=== PATIENT | female | born 1995 | race Caucasian/White ===

== ENCOUNTER 2016-08-12 14:06 | Emergency (ER) | payer OTHER ==
[~2016-08-12] VITALS: Ht 165.1 cm; Wt 69.1 kg
[2016-08-12 14:14] VITALS: Ht 165.1 cm; Wt 69.1 kg
[2016-08-12 15:43] VITALS: O2SAT 98
[2016-08-12] MEDS ORDERED: KETOROLAC TROMETHAMINE 30 MG/ML VIAL IV STA (15:47)
[2016-08-12] MEDS ORDERED: ONDANSETRON INJ 2 MG/ML 2 ML VIAL IV STA (15:47)
[2016-08-12] MEDS ORDERED: SODIUM CHLORIDE 0.9% 1000ML 2,000 ML IV STA (15:47)
[2016-08-12] MEDS ORDERED: CITA10TA4 PO (16:13)
[2016-08-12] MEDS ORDERED: FOLI1TAB7 PO (16:14)
[2016-08-12] MEDS ORDERED: LORA-741 PO (16:15)
[2016-08-12] MEDS ORDERED: METH2.5T PO (16:16)
[2016-08-12 16:17] LABS: HEMATOCRIT 38.6 % (37-47); MEAN CELL VOLUME 84.5 fL (80-100); MEAN CORPUSCULAR HEMOGLOBIN 29.1 pg (25-34); MEAN CORPUSCULAR HGB CONC 34.5 g/dl (32-36); MEAN PLATELET VOLUME 10.3 fL (7.4-10.4); PLATELET COUNT 209 K/uL (130-400); RED BLOOD COUNT 4.57 M/uL (4.2-5.4); WHITE BLOOD COUNT 7.57 K/uL (4.8-10.8)
--- NOTE | 2016-08-12 16:22 | DIAGNOSTIC IMAGING REPORT ---
CHEST ONE VIEW PORTABLE CLINICAL HISTORY: cough dyspnea COMPARISON STUDY: No previous studies for comparison. FINDINGS: Parenchymal infiltrate left infrahilar region. Lungs otherwise appear clear. Diaphragms smooth. IMPRESSION: Focal parenchymal infiltrate left infrahilar region Electronically signed by: Ethan Keys M.D. 08/12/2016 4:21 PM Dictated Date/Time: 08/12/2016 4:20 PM
[2016-08-12] MEDS ORDERED: HYDROCODONE/HOMATROPINE SYRUP 5MG/1.5MG 5ML UDP PO STA (16:23)
[2016-08-12] MEDS ORDERED: ACETAMINOPHEN 325 MG TAB PO STA (16:34)
[2016-08-12 16:36] LABS: BASO % 0.3 %; BASO ABS # 0.02 K/uL (0-0.2); BUN/CREATININE RATIO 16.4 (10-20); COMPLETE YES; CREATININE 0.87 mg/dl (0.60-1.20); EOS % 0.3 %; IG% 0.1 %; LYMPH % 11.9 %; MONO % 11.1 %; NEUT % 76.3 %; POTASSIUM 3.9 mmol/L (3.5-5.1)
[2016-08-12] MEDS ORDERED: LEVAQUIN 750MG / 150ML D5W IV ONE (17:00)
[2016-08-12 17:14] VITALS: TEMP 37.5
[2016-08-12 17:50] LABS: URINE APPEARANCE CLOUDY (CLEAR); URINE BILIRUBIN NEG (NEG); URINE COLOR YELLOW; URINE NITRITE NEG (NEG); URINE SPECIFIC GRAVITY 1.024 (1.000-1.030); UROBILINOGEN NEG (NEG)
[2016-08-12 17:56] LABS: MANUAL MICROSCOPIC REQUIRED? NO; REVIEW REQ? NO
[2016-08-12] MEDS ORDERED: BENZ100C18 PO (18:54)
[2016-08-12] MEDS ORDERED: LEVO1TAB35 PO (18:54)
[2016-08-12 19:13] VITALS: BP 112/53; PULSE 80; O2SAT 95
--- NOTE | 2016-08-12 23:14 | EMERGENCY ROOM VISIT NOTE ---
History Report prepared by Gilberto: Jese Barnes Under the Supervision of: Anny BernalO. First contact with patient: 15:33 Chief Complaint: VOMITING Stated Complaint: V, LIGHTHEADED, COUGH, CHILLS Nursing Triage Summary: Since last night n/v/d but states she normally has diarrhea. Passing out since Friday morning. At [employer] this past weekend. History of Present Illness The patient is a 21 year old female who presents to the Emergency Room with complaints of a severe and persistent cough starting about 2 weeks ago and worsening about a week ago. She has been vomiting after coughing spells since yesterday morning. She denies any nausea. She reports a loss of appetite but has a normal fluid intake. She also started having lightheadedness this morning but denies loss of consciousness. She reports a headache, runny nose, and a sore throat. The patient has a history of frequent sinus infections. 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 She is unsure about any fevers. Pt denies change in vision, chest pain, shortness of breath, abdominal pain, diarrhea, pain or burning with urination, melena, abnormal vaginal discharge, and lower extremity swelling. She is currently on her menstrual period. She denies any control medications. She does not have a family history of heart disease or of sudden deaths. She denies a personal history of blood clots. She returned from [facility] on July 08. The patient's immunizations are up -to-date. Source of History: patient Onset: about 2 weeks ago Position: other (global) Symptom Intensity: severe Quality: other (cough) Timing: other (persistent) Associated Symptoms: + headache, + sorethroat, + vomiting, No SOB, No abdominal pain, No chest pain, No diarrhea, No nausea Review of Systems See HPI for pertinent positives & negatives. A total of 10 systems reviewed and were otherwise negative. Past Medical & Surgical Medical Problems: (1) No Known Active Medical Problems (2) Sinus infection Family History No pertinent family history Social History Smoking Status: Never Smoker Alcohol Use: occasionally Marital Status: single Housing Status: lives with roommate Occupation Status: [employer] student Current/Historical Medications Scheduled Benzonatate (Tessalon Perles), 100 MG PO TID Citalopram Hydrobromide (Citalopram Hydrobromide), 10 MG PO DAILY Folic Acid (Folvite), 1 MG PO DAILY Levofloxacin (Levaquin), 750 MG PO QD@08 Methotrexate (Methotrexate), 2.5 MG PO UD Scheduled PRN Lorazepam (Ativan), 0.5 MG PO TID PRN for Anxiety Allergies Coded Allergies: Amoxicillin (Verified Allergy, Mild, RASH, 10/13/15) Physical Exam Vital Signs Date Time Temp Pulse Resp B/P Pulse Ox O2 Delivery O2 Flow Rate FiO2 08/12/16 19:13 80 20 112/53 95 08/12/16 17:14 37.5 94 16 116/64 97 Room Air 08/12/16 16:23 113 08/12/16 15:43 98 Room Air 08/12/16 15:41 38.2 121 24 147/82 98 Room Air 08/12/16 14:14 37.3 75 17 126/76 98 Room Air Physical Exam GENERAL: Sitting up in bed, disheveled, in no acute distress. EYE EXAM: normal conjunctiva, PERRL and EOM's intact OROPHARYNX: no exudate, no erythema, lips, buccal mucosa, and tongue normal and mucous membranes are moist NECK: supple, no nuchal rigidity, no adenopathy, non-tender LUNGS: Clear to auscultation. Normal chest wall mechanics HEART: Tachycardic rate. no murmurs, S1 normal and S2 normal ABDOMEN: abdomen soft, non-tender, normo-active bowel sounds, no masses, no rebound or guarding. BACK: Back is symmetrical on inspection and there is no deformity, no midline tenderness, no CVA tenderness. SKIN: no rashes and no bruising UPPER EXTREMITIES: upper extremities are grossly normal. LOWER EXTREMITIES: No pitting edema. Calves are equal bilaterally. NEURO EXAM: Normal sensorium, cranial nerves II-XII grossly intact, normal speech, no gross weakness of arms, no gross weakness of legs. Medical Decision & Procedures ER Provider Diagnostic Interpretation: Xray results per the radiologist and my interpretation. CHEST ONE VIEW PORTABLE CLINICAL HISTORY: cough dyspnea COMPARISON STUDY: No previous studies for comparison. FINDINGS: Parenchymal infiltrate left infrahilar region. Lungs otherwise appear clear. Diaphragms smooth. IMPRESSION: Focal parenchymal infiltrate left infrahilar region Electronically signed by: Ethan Keys M.D. 08/12/2016 4:21 PM Dictated Date/Time: 08/12/2016 4:20 PM Laboratory Results 08/12/16 15:55 Red Blood Count 4.57, Mean Corpuscular Volume 84.5, Mean Corpuscular Hemoglobin 29.1, Mean Corpuscular Hemoglobin Concent 34.5, Mean Platelet Volume 10.3, Neutrophils (%) (Auto) 76.3, Lymphocytes (%) (Auto) 11.9, Monocytes (%) (Auto) 11.1, Eosinophils (%) (Auto) 0.3, Basophils (%) (Auto) 0.3, Neutrophils # (Auto ) 5.78, Lymphocytes # (Auto) 0.90, Monocytes # (Auto) 0.84, Eosinophils # (Auto ) 0.02, Basophils # (Auto) 0.02 08/12/16 15:55 Test 08/12/16 15:55 08/12/16 16:15 08/12/16 17:30 White Blood Count 7.57 K/uL (4.8-10.8) Red Blood Count 4.57 M/uL (4.2-5.4) Hemoglobin 13.3 g/dL (12.0-16.0) Hematocrit 38.6 % (37-47) Mean Corpuscular Volume 84.5 fL (80-100) Mean Corpuscular Hemoglobin 29.1 pg (25-34) Mean Corpuscular Hemoglobin Concent 34.5 g/dl (32-36) Platelet Count 209 K/uL (130-400) Mean Platelet Volume 10.3 fL (7.4-10.4) Neutrophils (%) (Auto) 76.3 % Lymphocytes (%) (Auto) 11.9 % Monocytes (%) (Auto) 11.1 % Eosinophils (%) (Auto) 0.3 % Basophils (%) (Auto) 0.3 % Neutrophils # (Auto) 5.78 K/uL (1.4-6.5) Lymphocytes # (Auto) 0.90 K/uL (1.2-3.4) Monocytes # (Auto) 0.84 K/uL (0.11-0.59) Eosinophils # (Auto) 0.02 K/uL (0-0.5) Basophils # (Auto) 0.02 K/uL (0-0.2) RDW Standard Deviation 44.7 fL (36.4-46.3) RDW Coefficient of Variation 14.6 % (11.5-14.5) Immature Granulocyte % (Auto) 0.1 % Immature Granulocyte # (Auto) 0.01 K/uL (0.00-0.02) Anion Gap 14.0 mmol/L (3-11) Est Creatinine Clear Calc Drug Dose 100.7 ml/min Estimated GFR () 111.1 Estimated GFR (Non- 95.9 BUN/Creatinine Ratio 16.4 (10-20) Calcium Level 9.0 mg/dl (8.5-10.1) Total Bilirubin 0.9 mg/dl (0.2-1) Direct Bilirubin 0.2 mg/dl (0-0.2) Aspartate Amino Transf (AST/SGOT) 33 U/L (15-37) Alanine Aminotransferase (ALT/SGPT) 32 U/L (12-78) Alkaline Phosphatase 62 U/L (45-117) Total Protein 7.5 gm/dl (6.4-8.2) Albumin 3.9 gm/dl (3.4-5.0) Lipase 74 U/L (73-393) Influenza Type A Antigen Neg for Influ A (NEG) Influenza Type B Antigen Neg for Influ B (NEG) Urine Color YELLOW Urine Appearance CLOUDY (CLEAR) Urine pH 5.0 (4.5-7.5) Urine Specific [place] 1.024 (1.000-1.030) Urine Protein 1+ (NEG) Urine Glucose (UA) NEG (NEG) Urine Ketones 4+ (NEG) Urine Occult Blood 3+ (NEG) Urine Nitrite NEG (NEG) Urine Bilirubin NEG (NEG) Urine Urobilinogen NEG (NEG) Urine Leukocyte Esterase TRACE (NEG) Urine WBC (Auto) 1-5 /hpf (0-5) Urine RBC (Auto) 5-10 /hpf (0-4) Urine Hyaline Casts (Auto) 1-5 /lpf (0-5) Urine Epithelial Cells (Auto) 10-20 /lpf (0-5) Urine Bacteria (Auto) NEG (NEG) Urine Test NEG (NEG) Laboratory results per my review. Medications Administered Medications (Trade) Dose Ordered Sig/Holley Route Start Time Stop Time Status Last Admin Dose Admin Sodium Chloride (Nss 1000ml) 2,000 ml @ 999 mls/hr Q2H1M STAT IV 08/12/16 15:47 08/12/16 17:47 DC 08/12/16 15:58 999 MLS/HR Ondansetron HCl (Zofran Inj) 4 mg NOW STAT IV 08/12/16 15:47 08/12/16 15:49 DC 08/12/16 16:13 4 MG Ketorolac Tromethamine (Toradol Inj) 30 mg NOW STAT IV 08/12/16 15:47 08/12/16 15:49 DC 08/12/16 16:13 30 MG Hydrocodone Bit/ Homatropine Methylb (Hycodan Syrup) 5 ml NOW STAT PO 08/12/16 16:23 08/12/16 16:24 DC 08/12/16 16:28 5 ML Acetaminophen (Tylenol Tab) 650 mg NOW STAT PO 08/12/16 16:34 08/12/16 16:35 DC 08/12/16 16:56 650 MG Levofloxacin (Levaquin / D5W) 750 mg NOW ONCE IV 08/12/16 17:00 08/12/16 17:01 DC 08/12/16 17:13 750 MG ECG Indication: other (Cough) Rate (beats per minute): 103 Rhythm: sinus tachycardia Findings: no ectopy, other (normal axis) ED Course ED COURSE: Vital signs were reviewed and showed febrile and tachycardic. The patients medical record was reviewed The above diagnostic studies were performed and reviewed. ED treatments and interventions as stated above. 1533: The patient was evaluated in room C10. A complete history and physical examination was performed. 1547: Toradol Inj 30 mg IV, Zofran Inj 4 mg IV, Sodium Chloride 2000 ml @ 999 mls/hr IV 1623: Hycodan Syrup 5 ml PO 1634: Tylenol Tab 650 mg PO 1700: Levofloxacin 750 mg IV 1722: I reevaluated the patient who is resting comfortably. 1852: I spoke with the patient's father. He is an Emergency Room physician and would like for the patient to stick with Levaquin at this time. 1904: Upon reevaluation, the patient is doing well. I discussed my findings with the patient and she understands and agrees with the treatment plan. Based on the patients age, coexisting illnesses, exam and lab findings the decision to treat as an outpatient was made. The patient remained stable while under my care. The patient appeared well at the time of discharge. Medical Decision Differential diagnoses includes but is not limited to pneumonia, bronchitis, COPD/Asthma exacerbation, pneumothorax, pulmonary embolism, congestive heart failure, acute coronary syndrome Patient is a 21-year-old female who presents the ER for fever associated with diffuse myalgias, and a posttussive emesis which has been present since earlier today. Labs show fever and tachycardia. Labs show no significant leukocytosis or anemia. BMP was unremarkable along with LFTs, bilirubin and lipase. She is completely benign abdominal exam and consequently I did not perform any additional imaging. UA shows no signs of infection. Urine was negative. She received 2 L normal saline along with Levaquin, Zofran and Hycodan. Her coughing improved significant. EKG was unremarkable. Chest x- ray shows left-sided pneumonia. Her father is an ER physician and discussed case with him. He is in agreement with the current treatment plan. Discussed the choice of antibiotics with him and he preferred to stick with Levaquin at this time. Patient was discharged with Levaquin and Tessalon Perles to follow- up with S. Discussed with Pt concerning signs and symptoms to watch out for. Pt was instructed to follow up with their PCP and discussed with the patient their option to return to the ED at anytime for persistent or worsening symptoms. The appropriate anticipatory guidance and out-patient management, including indications for return to the emergency department, were explained at length to the patient and understood. Impression Primary Impression: Pneumonia Additional Impression: Sepsis Scribe Attestation The scribe's documentation has been prepared under my direction and personally reviewed by me in its entirety. I confirm that the note above accurately reflects all work, treatment, procedures, and medical decision making performed by me. Departure Information Dispostion Home / Self-Care Prescriptions Benzonatate (TESSALON PERLES) 100 Mg Cap 100 MG PO TID, #30 CAP Prov: August White, DO 08/12/16 Levofloxacin (Levaquin) 750 Mg Tab 750 MG PO QD@08, #9 TAB Prov: August White, DO 08/12/16 Referrals Lorena Moreira MD (PCP) Forms HOME CARE DOCUMENTATION FORM, IMPORTANT VISIT INFORMATION Patient Instructions My [facility], Pneumonia (Bacterial) - [facility] Additional Instructions Please follow up with your primary care doctor or if you are a student [facility] services with in the next 24 hours. Any worsening of your symptoms, please return to the ED immediately. This includes fevers greater than 100.4, unable to eat or drink, passing out, or any other concerning signs or symptoms from your standpoint. Please take antibiotics as prescribed. Please use Tessalon Perles as needed for coughing. Problem Qualifiers Primary Impression: Pneumonia Pneumonia type: due to unspecified organism Laterality: left Lung location : unspecified part of lung Qualified Codes: J18.9 - Pneumonia, unspecified organism Additional Impression: Sepsis Sepsis type: sepsis due to unspecified organism Qualified Codes: A41.9 - Sepsis, unspecified organism
== END 2016-08-12 19:13 | disposition home or self-care (01) ==
LOC: C.EDB 14:09 → C.EDC 19:13
DX: J18.9 Pneumonia, unspecified organism (principal); A41.9 Sepsis, unspecified organism

== ENCOUNTER 2016-08-14 00:08 | Inpatient (IN) | payer OTHER ==
[~2016-08-14] VITALS: Ht 165.1 cm; Wt 69.6 kg
[2016-08-14] VITALS (15 sets, daily range): BP systolic 101–116; BP diastolic 53–75; PULSE 63–107; TEMP 36.8–37.4; O2SAT 95–100; Ht 165.1 cm; Wt 69.6 kg
[~2016-08-14 00:08] MED LIST: BENZ100C18 PO; CITA10TA4 PO; FOLI1TAB7 PO; LEVO1TAB35 PO; LORA-741 PO; METH2.5T PO
[2016-08-14] MEDS ORDERED: HYDROCODONE/HOMATROPINE SYRUP 5MG/1.5MG 5ML UDP PO STA ×2 (00:21→02:00)
[2016-08-14] MEDS ORDERED: SODIUM CHLORIDE 0.9% 1000ML 1,000 ML IV STA ×2 (00:21→01:50)
[2016-08-14] MEDS ORDERED: ACETAMINOPHEN 500 MG TAB PO STA (00:21)
--- NOTE | 2016-08-14 00:23 | EMERGENCY ROOM VISIT NOTE ---
History Report prepared by Gilberto: Uday Koch Under the Supervision of: Dr. Jose Martin Colon M.D. First contact with patient: 00:16 Chief Complaint: COUGH Stated Complaint: COUGH Nursing Triage Summary: Patient arrived to ED via BLS for cough. Patient reports that she was seen and evaluated in the ED yesterday and dx with pneumonia. Patient was given IV levaquin, NSS, toradol yesterday in the ED. Patient was given rx for levaquin. Came back to the ED today because she isn't feeling any better. Patient presents with non-productive cough. History of Present Illness The patient is a 21 year old female who presents to the Emergency Room with complaints of persistent cough for the past few days. The patient complains of rib pain, sore throat, and decreased appetite. The patient presented to the ED yesterday and was started on Levaquin; however, her symptoms have gotten worse since then. She also complains of vomiting and an episode of syncope. The patient is also on Methotrexate for psoriasis. She denies back pain or urinary symptoms. She has a history of sinus infection. Source of History: patient Onset: past few days Position: other (global) Timing: worsening, other (persistent) Associated Symptoms: + LOC (episode of syncope), + sorethroat, + vomiting, No back pain, No urinary symptoms Note: Other associated symptoms: rib pain and decreased appetite Review of Systems See HPI for pertinent positives & negatives. A total of 10 systems reviewed and were otherwise negative. Past Medical & Surgical Medical Problems: (1) No Known Active Medical Problems (2) Sinus infection Family History No pertinent family history Social History Smoking Status: Current Every Day Smoker Alcohol Use: occasionally Marital Status: single Housing Status: lives with roommate Occupation Status: [employer] student Current/Historical Medications Scheduled Benzonatate (Tessalon Perles), 100 MG PO TID Citalopram Hydrobromide (Citalopram Hydrobromide), 10 MG PO DAILY Folic Acid (Folvite), 1 MG PO DAILY Levofloxacin (Levaquin), 750 MG PO QD@08 Methotrexate (Methotrexate), 2.5 MG PO UD Scheduled PRN Lorazepam (Ativan), 0.5 MG PO TID PRN for Anxiety Allergies Coded Allergies: Amoxicillin (Verified Allergy, Mild, RASH, 2/22/17) Physical Exam Vital Signs Date Time Temp Pulse Resp B/P Pulse Ox O2 Delivery O2 Flow Rate FiO2 08/14/16 01:31 103 20 123/65 97 Room Air 08/14/16 00:12 96 Room Air 08/14/16 00:12 36.8 98 20 128/83 96 Room Air Physical Exam GENERAL: Patient is moderately ill appearing and in moderate distress. HEENT: No acute trauma, normocephalic atraumatic, mucous membranes dry, posterior pharyngeal erythema, NECK: No stridor, no adenopathy, no meningismus, trachea is midline. LUNGS: No dyspnea. Persistent cough, crackles bilaterally. HEART: Tachycardia. No murmurs, rubs, gallops appreciated. ABDOMEN: Soft, nontender, bowel sounds positive, no masses appreciated, no peritonitis. BACK: No midline tenderness, no CVA tenderness EXTREMITIES: Normal motion all extremities, no cyanosis, no edema. NEUROLOGIC: Alert and oriented, no acute motor or sensory deficits, no focal weakness, cranial nerves grossly intact. SKIN: No rash, no jaundice, no diaphoresis. Findings of psoriasis. Medical Decision & Procedures ER Provider Diagnostic Interpretation: X ray results are stated below per my interpretation: Chest One View: Left perihilar infiltrate mildly increased from yesterday exam. No effusion, no pneumothorax, normal cardiac border. Laboratory Results 08/14/16 00:30 Red Blood Count 4.58, Mean Corpuscular Volume 85.8, Mean Corpuscular Hemoglobin 29.5, Mean Corpuscular Hemoglobin Concent 34.4, Mean Platelet Volume 10.9, Neutrophils (%) (Auto) 64.7, Lymphocytes (%) (Auto) 19.3, Monocytes (%) (Auto) 14.6, Eosinophils (%) (Auto) 0.8, Basophils (%) (Auto) 0.3, Neutrophils # (Auto ) 3.84, Lymphocytes # (Auto) 1.15, Monocytes # (Auto) 0.87, Eosinophils # (Auto ) 0.05, Basophils # (Auto) 0.02 08/14/16 00:30 Test 08/14/16 00:25 08/14/16 00:30 08/14/16 00:36 White Blood Count 5.95 K/uL (4.8-10.8) Red Blood Count 4.58 M/uL (4.2-5.4) Hemoglobin 13.5 g/dL (12.0-16.0) Hematocrit 39.3 % (37-47) Mean Corpuscular Volume 85.8 fL (80-100) Mean Corpuscular Hemoglobin 29.5 pg (25-34) Mean Corpuscular Hemoglobin Concent 34.4 g/dl (32-36) Platelet Count 188 K/uL (130-400) Mean Platelet Volume 10.9 fL (7.4-10.4) Neutrophils (%) (Auto) 64.7 % Lymphocytes (%) (Auto) 19.3 % Monocytes (%) (Auto) 14.6 % Eosinophils (%) (Auto) 0.8 % Basophils (%) (Auto) 0.3 % Neutrophils # (Auto) 3.84 K/uL (1.4-6.5) Lymphocytes # (Auto) 1.15 K/uL (1.2-3.4) Monocytes # (Auto) 0.87 K/uL (0.11-0.59) Eosinophils # (Auto) 0.05 K/uL (0-0.5) Basophils # (Auto) 0.02 K/uL (0-0.2) RDW Standard Deviation 45.0 fL (36.4-46.3) RDW Coefficient of Variation 14.5 % (11.5-14.5) Immature Granulocyte % (Auto) 0.3 % Immature Granulocyte # (Auto) 0.02 K/uL (0.00-0.02) Anion Gap 11.0 mmol/L (3-11) Est Creatinine Clear Calc Drug Dose 102.2 ml/min Estimated GFR () 112.7 Estimated GFR (Non- 97.3 BUN/Creatinine Ratio 7.6 (10-20) Calcium Level 8.6 mg/dl (8.5-10.1) Total Creatine Kinase 156 U/L (26-192) Troponin I < 0.015 ng/ml (0-0.045) Bedside Lactic Acid Venous 1.07 mmol/L (0.90-1.70) Laboratory results as reviewed by me. Medications Administered Medications (Trade) Dose Ordered Sig/Holley Route Start Time Stop Time Status Last Admin Dose Admin Hydrocodone Bit/ Homatropine Methylb 5 ml 5 ml NOW STAT PO 08/14/16 00:21 08/14/16 00:23 DC 08/14/16 00:34 5 ML Sodium Chloride (Nss 1000ml) 1,000 ml @ 999 mls/hr Q1H1M STAT IV 08/14/16 00:21 08/14/16 01:21 DC 08/14/16 00:21 999 MLS/HR Acetaminophen (Tylenol Tab) 1,000 mg NOW STAT PO 08/14/16 00:21 08/14/16 00:23 DC 08/14/16 00:34 1,000 MG Levofloxacin 750 mg 750 mg NOW STAT IV 08/14/16 00:44 08/14/16 00:50 DC 08/14/16 01:03 750 MG Vancomycin HCl 1750 mg/Sodium Chloride 535 ml @ 200 mls/hr NOW STAT IV 08/14/16 00:54 08/14/16 03:34 08/14/16 01:26 200 MLS/HR Sodium Chloride (Nss 1000ml) 1,000 ml @ 999 mls/hr Q1H1M STAT IV 08/14/16 01:50 08/14/16 02:50 08/14/16 02:04 999 MLS/HR Hydrocodone Bit/ Homatropine Methylb (Hycodan Syrup) 5 ml NOW STAT PO 08/14/16 02:00 08/14/16 02:01 DC 08/14/16 02:07 5 ML ED Course 0019: The patient was evaluated in room B6. A complete history and physical exam was performed. 0021: Ordered Tylenol Tab 1000 mg PO, NSS 1000 ml @ 999 mls/hr IV, Hycodan Syrup 5 ml PO. 0044: Ordered Levofloxacin 750 mg IV. 0054: Ordered Vancomycin HCl 1750 mg/ NSS 535 ml @ 200 mls/hr IV. 0215: At this time, I discussed the patient's case with Dr. Soler - Hospitalist [facility] and he agreed to accept the patient for further evaluation. Medical Decision Differential: Viral, Pharyngitis, Cellulitis, Pneumonia, Influenza, Meningitis, Sepsis, Bacteremia, amongst other pathologies entertained. 21 yr old female with left perihilar infiltrate on CXR yesterday and started on Levaquin with planned outpatient treatment. Worsening cough, fevers, fatigue and vomiting as outpatient. Unable to keep down levaquin at home. Did have syncope/near-syncopal event at home though currently without neuro deficits nor evidence of meningitis, ICH, etc. Suspect syncope secondary to dehydration and inability to keep down fluids. Hoarse voice consistent with persistent cough. Infiltrate mildly increased from yesterday though minimal so. WBC looks good and BUN improved from yesterday after fluids. She is not overtly septic by labs but with her Methotrexate use (psoriasis tx) and inability to keep down PO she is not candidate for attempt at further outpatient treatment. Given fluids , empiric Levaquin plus Vanco as high risk, and cough meds. Discussed with Father (Luis Laboy [phone]) who is an ED Physician in [place], [place] and he agrees with work-up/treatment and disposition. Patient stable and feeling better through ED stay. Throat is erythematous though no evidence of retropharyngeal abscess, epiglottitis, etc. She does not have meningitis by examination. Flu yesterday clear, though will send PCR for more definitive. With pneumonia on CXR and already getting abx no clear indication for strep testing. Consults Time Called: [phone] Consulting Physician: Dr. Soler - Hospitalist [facility] Returned Call: [phone] At this time, I discussed the patient's case with Dr. Soler and he agreed to accept the patient for further evaluation. Impression Primary Impression: Pneumonia Additional Impressions: Immunocompromised state Failure of outpatient treatment Dehydration Vomiting Scribe Attestation The scribe's documentation has been prepared under my direction and personally reviewed by me in its entirety. I confirm that the note above accurately reflects all work, treatment, procedures, and medical decision making performed by me. Departure Information Dispostion Being Evaluated By Hospitalist Referrals Lorena Moreira MD (PCP) Problem Qualifiers Primary Impression: Pneumonia Pneumonia type: due to unspecified organism Laterality: left Lung location : upper lobe of lung Qualified Codes: J18.1 - Lobar pneumonia, unspecified organism Additional Impressions: Vomiting Vomiting type: unspecified Vomiting Intractability: non-intractable Nausea presence: with nausea Qualified Codes: R11.2 - Nausea with vomiting, unspecified
[2016-08-14] MEDS ORDERED: LEVAQUIN 750MG / 150ML D5W IV STA (00:44)
[2016-08-14] MEDS ORDERED: VANCOMYCIN INJ 1,750 MG in SODIUM CHLORIDE 0.9% 500ML 500 ML IV STA (00:54)
[2016-08-14 01:00] LABS: BASO % 0.3 %; BASO ABS # 0.02 K/uL (0-0.2); COMPLETE YES; EOS % 0.8 %; HEMATOCRIT 39.3 % (37-47); IG% 0.3 %; LYMPH % 19.3 %; LYMPH ABS # 1.15 K/uL (1.2-3.4); MEAN CELL VOLUME 85.8 fL (80-100); MEAN CORPUSCULAR HEMOGLOBIN 29.5 pg (25-34); MEAN CORPUSCULAR HGB CONC 34.4 g/dl (32-36); MEAN PLATELET VOLUME 10.9 fL (7.4-10.4); MONO % 14.6 %; NEUT % 64.7 %; PLATELET COUNT 188 K/uL (130-400); RED BLOOD COUNT 4.58 M/uL (4.2-5.4); WHITE BLOOD COUNT 5.95 K/uL (4.8-10.8)
[2016-08-14 01:25] LABS: BLOOD UREA NITROGEN 7 mg/dl (7-18); BUN/CREATININE RATIO 7.6 (10-20); CALCIUM 8.6 mg/dl (8.5-10.1); CARBON DIOXIDE 27 mmol/L (21-32); CHLORIDE 105 mmol/L (98-107); CREATININE 0.86 mg/dl (0.60-1.20); GLUCOSE 92 mg/dl (70-99); POTASSIUM 3.6 mmol/L (3.5-5.1); SODIUM 143 mmol/L (136-145)
[2016-08-14] MEDS ORDERED: ONDANSETRON INJ 2 MG/ML 2 ML VIAL IV STA (02:11)
[2016-08-14 02:31] LABS: INFLUENZA A PCR Neg for Influ A (NEG); INFLUENZA B PCR Neg for Influ B (NEG)
[2016-08-14] MEDS ORDERED: ZOLPIDEM TARTRATE 5 MG TAB PO PRN (03:30)
[2016-08-14] MEDS ORDERED: METHYLPREDNISOLONE IV 60 MG in SYRINGE 0 ML IV SCH (03:30)
[2016-08-14] MEDS ORDERED: ONDANSETRON INJ 2 MG/ML 2 ML VIAL IV PRN (03:30)
[2016-08-14] MEDS ORDERED: ACETAMINOPHEN 325 MG TAB PO PRN (03:30)
[2016-08-14] MEDS ORDERED: ALUMINUM/MAGNESIUM/SIMETH (MAALOX MAX) 30 ML UDC PO PRN (03:30)
[2016-08-14] MEDS ORDERED: MAGNESIUM HYDROXIDE SUSP 30 ML UDC PO PRN (03:30)
[2016-08-14] MEDS ORDERED: LORAZEPAM 0.5 MG TAB PO PRN (03:30)
[2016-08-14] MEDS ORDERED: PROMETHAZINE HCL INJ 12.5 MG in SODIUM CHLORIDE 0.9% 50ML 50 ML IV PRN (03:30)
[2016-08-14] MEDS ORDERED: LORAZEPAM 2 MG/ML 1 ML VIAL IV PRN (03:30)
--- NOTE | 2016-08-14 03:39 | History and Physical ---
History & Physical Date & Time of Service: Aug 14, 2016 at 03:28 Chief Complaint: COUGH Primary Care Physician: Lorena Moreira MD History of Present Illness Source: patient The patient is a 21-year-old female who presents emergency department with complaint of persistent cough, hoarseness, sore throat and rib cage pain over the past few days. She's had a history of recurrent sinus infections has been having sinus congestion over the past week. She had been seen in the emergency department yesterday and was started on oral Levaquin, however, she's had worsening symptoms since then and has had nausea and vomiting would not be able to hold any medications down. She reports the vomiting typically occurs if or paroxysmal coughing becomes uncontrollable, but she is unsure of how the episode of syncope occurred. She has been on methotrexate for psoriasis for 1 month. Past Medical/Surgical History Medical Problems: (1) Sinus infection Status: Resolved Family History No pertinent family history Social History Smoking Status: Current Every Day Smoker Smokeless Tobacco Use: No Alcohol Use: socially Drug Use: none Marital Status: single Occupational Status: [employer] student Multi-Drug Resistant Organisms History of MDRO: No Allergies Coded Allergies: Amoxicillin (Verified Allergy, Mild, RASH, 08/14/16) Home Medications Scheduled Benzonatate (Tessalon Perles), 100 MG PO TID Citalopram Hydrobromide (Citalopram Hydrobromide), 10 MG PO DAILY Folic Acid (Folvite), 1 MG PO DAILY Levofloxacin (Levaquin), 750 MG PO QD@08 Methotrexate (Methotrexate), 2.5 MG PO UD Scheduled PRN Lorazepam (Ativan), 0.5 MG PO TID PRN for Anxiety Review of Systems The patient denies lower extremity swelling, vision change, hearing change, sweats, weight change, pelvic pain, blood in urine or stool, dysuria, urinary frequency or urgency, headache, memory loss, rash, abnormal bruising or bleeding, imbalance, focal weakness, numbness or tingling in arms or legs, arthralgias or myalgias, back or neck pain, night sweats. The review of systems is otherwise negative other than for that already noted above, and at least 10 systems have been reviewed. Physical Exam Vital Signs Date Time Temp Pulse Resp B/P Pulse Ox O2 Delivery O2 Flow Rate FiO2 08/14/16 03:18 94 08/14/16 01:31 103 20 123/65 97 Room Air 08/14/16 00:12 96 Room Air 08/14/16 00:12 36.8 98 20 128/83 96 Room Air The patient is awake, well-developed and adequately nourished, alert and oriented 3, normocephalic and atraumatic, lying in bed and in no acute distress. HEENT--PERRL, EOMI, mucous membranes and oropharynx dry. Neck--supple, no JVD or bruits, thyroid normal, trachea midline, no adenopathy. Heart--normal S1 and S2, no extra beats, no murmurs, rubs or gallops. Lungs--bronchitic cough with wheezing, no respiratory distress, no accessory muscle use. Abdomen--normal bowel sounds and soft, nontender and nondistended, no hernias or masses, no organomegaly. Extremities--no cyanosis, clubbing or edema. There are good distal pulses b/l. Dermatologic--normal skin turgor, normal color, warm and dry, no abnormal lymph nodes, no rash. Neurologic--cranial nerves II through XII grossly intact, motor and sensory examination normal. Rheumatologic--normal range of motion, nontender, muscles and joints. Psychiatric--normal affect. Diagnostics Laboratory Results Results Past 24 Hours Test 08/14/16 00:25 08/14/16 00:30 08/14/16 00:36 Range/Units Influenza Type A (RT-PCR) Neg for Influ A NEG Influenza Type B (RT-PCR) Neg for Influ B NEG White Blood Count 5.95 4.8-10.8 K/uL Red Blood Count 4.58 4.2-5.4 M/uL Hemoglobin 13.5 12.0-16.0 g/dL Hematocrit 39.3 37-47 % Mean Corpuscular Volume 85.8 80-100 fL Mean Corpuscular Hemoglobin 29.5 25-34 pg Mean Corpuscular Hemoglobin Concent 34.4 32-36 g/dl Platelet Count 188 130-400 K/uL Mean Platelet Volume 10.9 7.4-10.4 fL Neutrophils (%) (Auto) 64.7 % Lymphocytes (%) (Auto) 19.3 % Monocytes (%) (Auto) 14.6 % Eosinophils (%) (Auto) 0.8 % Basophils (%) (Auto) 0.3 % Neutrophils # (Auto) 3.84 1.4-6.5 K/uL Lymphocytes # (Auto) 1.15 1.2-3.4 K/uL Monocytes # (Auto) 0.87 0.11-0.59 K/uL Eosinophils # (Auto) 0.05 0-0.5 K/uL Basophils # (Auto) 0.02 0-0.2 K/uL RDW Standard Deviation 45.0 36.4-46.3 fL RDW Coefficient of Variation 14.5 11.5-14.5 % Immature Granulocyte % (Auto) 0.3 % Immature Granulocyte # (Auto) 0.02 0.00-0.02 K/uL Sodium Level 143 136-145 mmol/L Potassium Level 3.6 3.5-5.1 mmol/L Chloride Level 105 98-107 mmol/L Carbon Dioxide Level 27 21-32 mmol/L Anion Gap 11.0 3-11 mmol/L Blood Urea Nitrogen 7 7-18 mg/dl Creatinine 0.86 0.60-1.20 mg/dl Est Creatinine Clear Calc Drug Dose 102.2 ml/min Estimated GFR () 112.7 Estimated GFR (Non- 97.3 BUN/Creatinine Ratio 7.6 10-20 Random Glucose 92 70-99 mg/dl Calcium Level 8.6 8.5-10.1 mg/dl Total Creatine Kinase 156 26-192 U/L Troponin I < 0.015 0-0.045 ng/ml Bedside Lactic Acid Venous 1.07 0.90-1.70 mmol/L Microbiology Results 08/14/16 Blood Culture, Received Pending 08/14/16 Blood Culture, Received Pending Impression Assessment and Plan Syncopal episode--likely secondary to paroxysmal coughing, however patient is unsure, so the safest thing at this point is to admit her to the telemetry unit to monitor for arrhythmia. Bronchitis/pharyngitis/sinusitis--place on ceftriaxone 1 g IV daily, levofloxacin 500 mg IV daily, Solu-Medrol 40 mg IV every 8 hours, albuterol nebulizers to use every 6 hours while awake and every 2 hours when necessary, and Hycodan syrup 5-10 ML's by mouth every 4 hours when necessary for cough. Her recurrent sinusitis has occurred long since before the use of methotrexate, and is likely worsened by tobacco use, and she should be considered for allergy testing when she is infection free. Anxiety--continue citalopram 10 mg by mouth daily and Ativan 0.5 mg by mouth 3 times a day when necessary. Psoriasis--just finished a trial of methotrexate 1 month, and is due to restart , was advised to hold until infectious process is over. Continue folic acid 1 mg by mouth daily. Tobacco use disorder--patient reports to be a current every day smoker, which is likely contributing significantly to her inability to clear infections. Level of Care Telemetry Advanced Directives Existing Advance Directive: No Existing Living Will: No Existing Power of Mica Paster: No Resuscitation Status FULL RESUSCITATION VTE Prophylaxis VTE Risk Assessment Done? Y/N: Yes Risk Level: Low Given or contraindicated: SCD's Social Service Consult None Apply
[2016-08-14] MEDS ORDERED: METHYLPREDNISOLONE IV 40 MG in SYRINGE 0 ML IV SCH (04:00)
[2016-08-14] MEDS ORDERED: CEFTRIAXONE SOD INJ 1 GM in DEXTROSE 5% ADD-VANTAGE 50ML 50 ML IV SCH (04:00)
[2016-08-14] MEDS: DiphenhydrAMINE HCL 50 MG/ML VIAL IV PRN ×2 (04:20→21:23)
[2016-08-14] MEDS: NSS + 20MEQ KCL 1000ML 1,000 ML IV SCH ×3 (04:26→19:48)
[2016-08-14] MEDS: HYDROCODONE/HOMATROPINE SYRUP 5MG/1.5MG 5ML UDP PO PRN ×4 (05:11→20:03)
--- NOTE | 2016-08-14 06:46 | DIAGNOSTIC IMAGING REPORT ---
CHEST ONE VIEW PORTABLE CLINICAL HISTORY: Shortness of breath, fever and worsening cough. COMPARISON STUDY: Chest radiograph August 12, 2016. FINDINGS: Lung volumes are normal. There is no pneumothorax or pleural effusion. An oval-shaped 4.8 cm left midlung opacity is noted. This has slightly increased. Right lung is clear. Cardiac size is normal. Mediastinal contours are normal. IMPRESSION: Slight increase in extent of a small area of suspected consolidation within the left midlung since prior exam. The findings suggest pneumonia. Radiographic follow up to ensure resolution is recommended. Electronically signed by: Best Ramirez M.D. 08/14/2016 6:45 AM Dictated Date/Time: 08/14/2016 6:43 AM
[2016-08-14] MEDS ORDERED: BENZONATATE 100MG CAP PO SCH (09:00)
[2016-08-14] MEDS: CITALOPRAM 20 MG TAB PO SCH (09:30)
[2016-08-14] MEDS: GUAIFENESIN 600 MG TABCR PO SCH ×2 (09:30→20:03)
[2016-08-14] MEDS: ALBUTEROL 0.5% NEB SOLN 2.5 MG/0.5 ML VIAL INH SCH ×3 (10:01→19:34)
--- NOTE | 2016-08-14 12:14 | Progress Note ---
Progress Note Date of Service Aug 14, 2016. Progress Note Pt admitted earlier this morning. I saw and examined pt. C/o subjective fever and chills, weakness, fatigue, 9/10 sharp rib pain L>R that is worse with coughing and deep breaths, intermittent palpitations, sore throat, hoarseness, coughing that is sometimes productive, shortness of breath, OSPINA, and wheezing. She has not been eating because she experiences coughing spells that are so intense that she will vomit if there is food in her stomach. The patient denies sweats, chest pain, claudication, nausea, vomiting this morning, abdominal pain, dysuria, hematuria, urinary retention, paralysis, numbness and tingling. Physical exam findings pertinent for decreased breath sounds throughout. Ribs are TTP laterally, L>R. Exam otherwise unremarkable. A/P: CXR shows pneumonia in left mid-lung zone. Afebrile, no WBC. Will transfer to med/surg as cardiac monitoring has not shown any arrhythmias and VSS. Pt actually denies LOC when she collapsed, likely secondary to dehydration since she is not eating or vasovagal response. Orthostatic BPs normal. D/C Rocephin. Continue Levaquin but at PNA dosing, 750 mg IV qd D/C Solu-Medrol. Start Prednisone 40 mg PO qd Continue IVF as has poor oral intake Continue Hycodan q4h prn cough. Add Tessalon Perles 100 mg PO TID prn cough. Add lozenges for sore throat. Continue albuterol nebs and Mucinex. Tramadol 50 mg PO q6h prn pain Obtain sputum culture if able
[2016-08-14 12:24] LABS: URINE APPEARANCE CLEAR (CLEAR); URINE BILIRUBIN NEG (NEG); URINE COLOR YELLOW; URINE NITRITE NEG (NEG); URINE SPECIFIC GRAVITY 1.006 (1.000-1.030); UROBILINOGEN NEG (NEG); ZZUR CULT IF INDIC CLEAN CATCH NO
[2016-08-14 12:28] LABS: MANUAL MICROSCOPIC REQUIRED? NO; REVIEW REQ? NO
[2016-08-14] MEDS: COUGH DROP (SUGAR FREE) LOZ 24 LOZ/1 BOX PO SCH ×2 (13:35→20:03)
[2016-08-14] MEDS: BENZONATATE 100MG CAP PO PRN ×2 (18:14→21:36)
[2016-08-14] MEDS: LEVOFLOXACIN / D5W 750 MG in PREMIXED IN D5W 150 ML IV SCH (23:50)
[2016-08-15] MEDS ORDERED: LEVOFLOXACIN / D5W 500 MG in PREMIXED IN D5W 100 ML IV SCH (01:00)
[2016-08-15] MEDS: ALBUTEROL 0.5% NEB SOLN 2.5 MG/0.5 ML VIAL INH SCH ×2 (01:36→07:13)
[2016-08-15 01:37] VITALS: PULSE 107; O2SAT 98
[2016-08-15] MEDS: HYDROCODONE/HOMATROPINE SYRUP 5MG/1.5MG 5ML UDP PO PRN ×3 (01:59→17:34)
[2016-08-15] MEDS: NSS + 20MEQ KCL 1000ML 1,000 ML IV SCH ×3 (03:44→19:33)
[2016-08-15 07:06] VITALS: BP 113/75; PULSE 86; TEMP 37.1; O2SAT 96
[2016-08-15 07:13] VITALS: PULSE 98; O2SAT 94
[2016-08-15 07:16] LABS: BASO % 0.2 %; BASO ABS # 0.01 K/uL (0-0.2); COMPLETE YES; EOS % 0.2 %; HEMATOCRIT 33.4 % (37-47); IG% 0.2 %; LYMPH % 24.4 %; MEAN CELL VOLUME 86.8 fL (80-100); MEAN CORPUSCULAR HEMOGLOBIN 28.8 pg (25-34); MEAN CORPUSCULAR HGB CONC 33.2 g/dl (32-36); MEAN PLATELET VOLUME 10.9 fL (7.4-10.4); MONO % 12.9 %; NEUT % 62.1 %; PLATELET COUNT 138 K/uL (130-400); RED BLOOD COUNT 3.85 M/uL (4.2-5.4); WHITE BLOOD COUNT 5.33 K/uL (4.8-10.8)
[2016-08-15 07:52] LABS: BUN/CREATININE RATIO 7.9 (10-20); CALCIUM 8.6 mg/dl (8.5-10.1); CREATININE 0.68 mg/dl (0.60-1.20); MAGNESIUM 2.1 mg/dl (1.8-2.4); POTASSIUM 3.9 mmol/L (3.5-5.1)
[2016-08-15] MEDS: TRAMADOL HCL 50 MG TAB PO PRN ×2 (08:07→17:35)
[2016-08-15] MEDS: CITALOPRAM 20 MG TAB PO SCH (08:07)
[2016-08-15] MEDS: COUGH DROP (SUGAR FREE) LOZ 24 LOZ/1 BOX PO SCH ×3 (08:07→20:35)
[2016-08-15] MEDS: GUAIFENESIN 600 MG TABCR PO SCH ×2 (08:32→20:35)
[2016-08-15] MEDS: ALBUT/IPRATROP 3MG/0.5MG NEB 3 ML VIAL INH SCH ×3 (11:30→19:35)
[2016-08-15] MEDS ORDERED: LORATADINE 10 MG TAB PO ONE (12:00)
--- NOTE | 2016-08-15 12:08 | Hospitalist Progress Note ---
Hospitalist Progress Note Date of Service Aug 15, 2016. (Vivi Rendon ., ZAFARC) Subjective Pt evaluation today including: conversation w/ patient, physical exam, chart review, lab review, review of inpatient medication list Pain: 10/10 sharp rib pain PO Intake: Nausea and vomiting with food Voiding: no voiding problems Patient reports not feeling well. She has been very anxious and has not been sleeping well. She tried to eat some broth last night but vomited it back up after only a few sips. She has therefore not been eating, and has been drinking very little fluids due to nausea. She feels short of breath and is unable to take deep breaths. Her rib pain has gotten worse and is currently a 10/10 sharp pain L>R. She has not tried taking the tramadol for pain yet when I talked to her this morning. She also complains of hoarseness, sore throat, and sinus congestion. Her cough is improved with the Hycodan. The patient reports some subjective fevers and chills last night, but temperatures have been normal. The patient denies chest pain, palpitations, claudication, wheezing, abdominal pain, dysuria, hematuria, urinary retention, paralysis, weakness, numbness and tingling. Additional Comments: See HPI for pertinent positives and negatives. All other systems reviewed and negative. (Vivi Rendon ., OBEY-C) Objective Vital Signs Date Time Temp Pulse Resp B/P Pulse Ox O2 Delivery O2 Flow Rate FiO2 08/15/16 08:00 Room Air 08/15/16 07:13 98 16 94 Room Air 08/15/16 07:06 37.1 86 16 113/75 96 Room Air 08/15/16 01:37 107 16 98 Room Air 08/15/16 00:15 Room Air 08/14/16 23:41 36.8 68 18 112/73 97 Room Air 08/14/16 19:34 83 16 98 Room Air 08/14/16 17:10 37.0 18 113/75 97 Room Air 08/14/16 16:36 37.4 105 18 95 08/14/16 16:00 95 Room Air 08/14/16 15:18 37.4 105 18 116/72 95 Room Air 08/14/16 15:14 79 16 96 Nasal Cannula 2.0 08/14/16 12:49 37.2 85 19 109/67 99 08/14/16 12:33 37.2 85 19 99 08/14/16 12:16 99 Room Air (Vivi Rendon ., OBEY-C) Physical Exam General Appearance: WD/WN, + mild distress (appears uncomfortable, grimaces with each cough) Eyes: normal inspection, PERRL, EOMI ENT: normal ENT inspection, hearing grossly normal, pharynx normal Neck: supple, no JVD, trachea midline Respiratory/Chest: lungs clear, no respiratory distress, + decreased breath sounds (very little air movement), + pertinent finding (ribs TTP laterally) Cardiovascular: regular rate, rhythm, no gallop, no murmur Abdomen: normal bowel sounds, soft, + tenderness (lower abdomen mildly TTP) Extremities: non-tender, normal inspection, no pedal edema Neurologic/Psychiatric: alert, oriented x 3, + pertinent finding (anxious) Skin: normal color, warm/dry, no rash (Vivi Rendon ., OBEY-C) Laboratory Results Last 24 Hours Test 08/14/16 21:11 08/15/16 06:48 08/15/16 07:44 Bedside Glucose 145 mg/dl 99 mg/dl White Blood Count 5.33 K/uL Red Blood Count 3.85 M/uL Hemoglobin 11.1 g/dL Hematocrit 33.4 % Mean Corpuscular Volume 86.8 fL Mean Corpuscular Hemoglobin 28.8 pg Mean Corpuscular Hemoglobin Concent 33.2 g/dl Platelet Count 138 K/uL Mean Platelet Volume 10.9 fL Neutrophils (%) (Auto) 62.1 % Lymphocytes (%) (Auto) 24.4 % Monocytes (%) (Auto) 12.9 % Eosinophils (%) (Auto) 0.2 % Basophils (%) (Auto) 0.2 % Neutrophils # (Auto) 3.31 K/uL Lymphocytes # (Auto) 1.30 K/uL Monocytes # (Auto) 0.69 K/uL Eosinophils # (Auto) 0.01 K/uL Basophils # (Auto) 0.01 K/uL RDW Standard Deviation 46.1 fL RDW Coefficient of Variation 14.7 % Immature Granulocyte % (Auto) 0.2 % Immature Granulocyte # (Auto) 0.01 K/uL Sodium Level 139 mmol/L Potassium Level 3.9 mmol/L Chloride Level 108 mmol/L Carbon Dioxide Level 23 mmol/L Anion Gap 8.0 mmol/L Blood Urea Nitrogen 5 mg/dl Creatinine 0.68 mg/dl Est Creatinine Clear Calc Drug Dose 129.2 ml/min Estimated GFR () 145.9 Estimated GFR (Non- 125.9 BUN/Creatinine Ratio 7.9 Random Glucose 88 mg/dl Calcium Level 8.6 mg/dl Magnesium Level 2.1 mg/dl (Vivi Rendon ., PA-C) Assessment and Plan 21 y/o female with a history of recurrent sinusitis presents to the ED with ? syncopal episode, cough, hoarseness, sore throat and rib cage pain over the past few days. Pt was seen in ED one day prior to admission and started on PO Levaquin, however symptoms continued to worsen and she had N/V and was not able to keep medications down. Vomiting typically occurs after uncontrollable coughing. Pt also reported an episode of possible syncope one day prior to arrival, stating that she was getting out of bed, felt lightheaded, and then collapsed, but she does not think she had any LOC. CXR shows suspected consolidation within the left midlung suggestive of PNA. Pt just finished 1 month long trial of methotrexate for psoriasis. Possible syncope/lightheadedness--Pt monitored in ED while on tele hold without any arrhythmias and stable vital signs. Pt denies LOC, collapse/LH likely secondary to dehydration since she is not eating or vasovagal response. Orthostatic BPs normal. Pneumonia in setting of immunocompromise--consolidation in left lung, no lateral CXR view, upper vs lower lobe -Transfer to med/surg -Continue Levaquin 750 mg IV qd -Continue Prednisone 40 mg PO qd -Continue NSS + 20 mEq KCL at 125 cc/hr due to poor oral intake -Continue Hycodan syrup 5-10 mL PO q4h prn cough -Tessalon Perles 100 mg PO TID prn cough -Mucinex 600 mg PO BID -Lozenges for sore throat -Duonebs QIDR and q2h prn SOB/wheezing -Sputum culture pending -Blood cultures NGTD x 2 ?Acute sinusitis--pt has h/o recurrent sinusitis, even before methotrexate use -CT sinuses w/o contrast -Flonase 2 sprays each nostril qd -Claritin 10 mg PO qd -Consider allergy testing when acute illness resolved as outpatient Rib pain -Continue Tramadol 50 mg PO q6h prn pain Anxiety -Continue citalopram 10 mg PO qd and Ativan 0.5 mg PO TID prn anxiety DVT prophylaxis -Encourage ambulation -ERROL aparicio and SCDs Code Status -Level I, FULL RESUSCITATION STATUS (Vivi Rendon ., PA-C) I agree with PA assessment and plan and have seen and examine pt myself Noted tachycardia Noted sinus congestion Maximize allergy meds Lympahdenopathy noted and dec BS b/l Cont steroids and antibx Obtain sinus CT (Juan Colunga, D.O.)
--- NOTE | 2016-08-15 12:36 | DIAGNOSTIC IMAGING REPORT ---
SINUS CT CT DOSE: 237.08 mGycm HISTORY: Sinusitis recurrent sinusitis - OK TO DO WITHOUT IV CONTRAST TECHNIQUE: Multiaxial CT images of the paranasal sinuses were performed and reformatted in the coronal plane without the use of contrast. COMPARISON: None. FINDINGS: Minimal mucosal thickening anterior inferior frontal sinuses. Mild hyperplastic change nasal turbinates. Moderate mucosal thickening ethmoid and maxillary sinuses. Left ostiomeatal units show soft tissue occlusion as does the right. There is a small punctate defect within the right maxillary sinus wall which potentially represents a small antral window although is no history of surgery and orbital margins appear to be intact. The mastoid air cells are clear. The orbits are unremarkable. IMPRESSION: 1. Moderate mucosal thickening of the maxillary and ethmoid sinuses. 2. Soft tissue occlusion of the ostomy units bilaterally. L3. Mild hyperplastic change of the nasal turbinates Electronically signed by: Ethan Keys M.D. 08/15/2016 12:35 PM Dictated Date/Time: 08/15/2016 12:30 PM
[2016-08-15 15:34] VITALS: BP 118/78; PULSE 78; TEMP 36.7; O2SAT 92
[2016-08-15 16:05] VITALS: PULSE 69; O2SAT 96
[2016-08-15 19:35] VITALS: PULSE 74; O2SAT 96
[2016-08-15] MEDS: LEVOFLOXACIN / D5W 750 MG in PREMIXED IN D5W 150 ML IV SCH (23:45)
[2016-08-16] VITALS (7 sets, daily range): BP systolic 110–114; BP diastolic 67–77; PULSE 68–117; TEMP 37–37.2; O2SAT 91–97
[2016-08-16] MEDS: NSS + 20MEQ KCL 1000ML 1,000 ML IV SCH ×3 (03:42→19:31)
[2016-08-16] MEDS: ALBUT/IPRATROP 3MG/0.5MG NEB 3 ML VIAL INH SCH ×4 (07:07→20:00)
--- NOTE | 2016-08-16 07:17 | ENT CONSULTATION ---
DATE OF CONSULTATION: 08/16/2016 OTOLARYNGOLOGY HEAD AND NECK SURGERY INPATIENT CONSULTATION I have been asked by physician bacteriology research assistant, Vivi Rendon to evaluate this patient with sinusitis. 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 She had a syncopal episode, likely secondary to paroxysmal coughing. The patient is currently on IV Levaquin and oral prednisone for her sinusitis and pneumonia. CT scan of the sinuses images as well as report were reviewed, which essentially shows pansinusitis and ostiomeatal complex obstruction along with left septal deviation and bilateral inferior turbinate hypertrophy. The patient currently complains of facial pain and pressure, headache, purulent postnasal drip, cough, fatigue, and hoarseness. She states that she is "40%" improved since being admitted on August 14. In addition to the above-mentioned symptoms, she also has ear pressure. She denies any hearing loss. 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 She is uncertain as to whether or not she would have anything surgically done here versus closer to home in [place]. She is going to [facility] over her summer vacation. ALLERGIES: AMOXICILLIN. CURRENT MEDICATIONS: Flonase nasal spray, Claritin, DuoNebs, prednisone, levofloxacin, tramadol p.r.n., Tessalon Perles p.r.n., folic acid, citalopram, guaifenesin, potassium chloride, Tylenol p.r.n., Ambien p.r.n., lorazepam p.r.n., hydrogen peroxide, diphenhydramine p.r.n., Maalox p.r.n., promethazine p.r.n., Zofran p.r.n., and Hycodan syrup. PAST MEDICAL HISTORY: 1. As above. 2. Psoriasis for which she was on methotrexate. PAST SURGICAL HISTORY: None. FAMILY HISTORY: Noncontributory. 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 She denies any tobacco, alcohol or illicit drug use. REVIEW OF SYSTEMS: The patient has ear pressure, nasal congestion, sinus pain and pressure, postnasal drip, productive cough, hoarseness, and fatigue. PHYSICAL EXAMINATION: GENERAL: This is an ill-appearing young adult white female in no acute distress with no stridor. She does have a moderately hoarse voice. VITAL SIGNS: Currently he is afebrile and her vital signs are stable. HEENT: External auditory canals and tympanic membranes are clear. The tympanic membranes are mildly retracted, but there is no middle ear effusion. The patient has mild nasal mucosal congestion with posterior left septal deviation and right greater than left inferior turbinate hypertrophy. Oral cavity and oropharynx examination reveals mild erythema involving the posterior pharyngeal wall. NECK: There is no neck lymphadenopathy, thyroid nodularity, or masses. NEUROLOGIC: Cranial nerves II-XII are grossly intact. The patient is awake and alert and oriented x3. IMAGING: As stated above, the patient has pansinusitis with left septal deviation and right greater than left inferior turbinate hypertrophy. She has ostiomeatal complex obstruction bilaterally. IMPRESSION AND RECOMMENDATIONS: A 21-year-old female with relative immunosuppression from methotrexate for psoriasis with a history of recurrent acute and chronic sinusitis who states that she approximately gets 6 episodes of sinusitis each year for the past [address] scan shows pansinusitis, left septal deviation, right greater than left inferior turbinate hypertrophy. I would agree with IV antibiotics and perhaps consideration of IV steroids. She probably needs a total of 4-6 weeks of antibiotic therapy and perhaps 1-2 weeks of outpatient steroid therapy. I would recommend a post-treatment CT scan of the sinuses. However, where she has the CT depends on whether or not she wants surgical intervention with me here locally in [place] versus closer to home in [place]. She should follow up with me on an outpatient basis if she decides she wants surgical intervention done in the [place] area and/or if she has any future problems with sinusitis while she is a student at [employer]. Most likely she will have surgical intervention closer to home in [place] and I will leave that to the discretion of the digital photographic printer in that area to decide on what imaging modality they may want to pursue. I will sign off on this consultation since there is no surgical issue at this time. If you need any further assistance regarding the management of this patient, please do not hesitate to contact me.
[2016-08-16 08:05] LABS: BASO % 0.5 %; BASO ABS # 0.03 K/uL (0-0.2); COMPLETE YES; EOS % 0.2 %; HEMATOCRIT 33.5 % (37-47); IG% 0.3 %; LYMPH ABS # 1.69 K/uL (1.2-3.4); MEAN CELL VOLUME 85.5 fL (80-100); MEAN CORPUSCULAR HEMOGLOBIN 28.3 pg (25-34); MEAN CORPUSCULAR HGB CONC 33.1 g/dl (32-36); MEAN PLATELET VOLUME 11.2 fL (7.4-10.4); MONO % 10.3 %; NEUT % 62.7 %; PLATELET COUNT 168 K/uL (130-400); RED BLOOD COUNT 3.92 M/uL (4.2-5.4); WHITE BLOOD COUNT 6.49 K/uL (4.8-10.8)
[2016-08-16 08:31] LABS: BUN/CREATININE RATIO 8.6 (10-20); CALCIUM 8.5 mg/dl (8.5-10.1); CREATININE 0.73 mg/dl (0.60-1.20)
[2016-08-16] MEDS: HYDROCODONE/HOMATROPINE SYRUP 5MG/1.5MG 5ML UDP PO PRN ×2 (08:42→12:34)
[2016-08-16] MEDS: TRAMADOL HCL 50 MG TAB PO PRN ×3 (08:42→21:38)
[2016-08-16] MEDS: FLUTICASONE PROPIONATE NA SPR 16 GM BTL NAE SCH (08:48)
[2016-08-16] MEDS: LORATADINE 10 MG TAB PO SCH (08:48)
[2016-08-16] MEDS: GUAIFENESIN 600 MG TABCR PO SCH ×2 (08:49→21:39)
[2016-08-16] MEDS: CITALOPRAM 20 MG TAB PO SCH (08:49)
[2016-08-16] MEDS: COUGH DROP (SUGAR FREE) LOZ 24 LOZ/1 BOX PO SCH ×3 (08:49→21:39)
[2016-08-16] MEDS: BENZONATATE 100MG CAP PO PRN ×2 (10:09→21:38)
[2016-08-16] MEDS ORDERED: SULFAMETHOXAZOLE/TRIMETHOPRIM DS 800/160MG TAB PO ONE (11:00)
[2016-08-16] MEDS ORDERED: HYCUDL5 PO (13:31)
[2016-08-16] MEDS ORDERED: SULF-183 PO (13:31)
[2016-08-16] MEDS ORDERED: ULT50X PO (13:31)
[2016-08-16] MEDS ORDERED: PRED10TA PO (13:31)
[2016-08-16] MEDS ORDERED: GFNSR600 PO (13:31)
[2016-08-16] MEDS ORDERED: FLNIN NAE (13:31)
[2016-08-16] MEDS ORDERED: CLR10 PO (13:31)
--- NOTE | 2016-08-16 13:54 | Discharge Instructions ---
Discharge Instructions Admission Reason for Admission: Failure Of Outpatient Treatment, Syncope Discharge Discharge Diagnosis / Problem: Pneumonia, acute sinusitis Discharge Goals Goal(s): Decrease discomfort, Improve disease control, Improve nutritional status, Diagnostic testing, Therapeutic intervention Activity Recommendations Activity Limitations: resume your previous activity (as tolerated) . Instructions / Follow-Up Instructions / Follow-Up You were admitted to the hospital after failing outpatient treatment for sinusitis and pneumonia, presenting with persistent cough, hoarseness, sore throat, rib pain, nausea and vomiting. A chest x-ray showed a consolidation in the left lung that was suggestive of a pneumonia, possibly due to an atypical organism. A CT of your sinuses also showed a smart-sinusitis. An ear, nose and throat physician was consulted, who recommended that you complete 4-6 weeks of antibiotic therapy as well as 1-2 weeks of steroid therapy. You will be set up with an outpatient follow up appointment with Dr. Palomares of ENT to discuss future surgical intervention and for routine follow up. Medications: Please discontinue methotrexate as this is an immunosuppressant and you have acute infections. Please also discontinue Levaquin as you will be placed on another antibiotic instead. Please take Bactrim DS 1 tab by mouth twice a day for [address] Palomares's recommendations. Please continue to take oral Prednisone. You have been placed on a taper, take as directed. Take 3 tablets once daily for days 1-3, then 2 tablets once daily for days 4-6, then 1 tablet once daily for days 7-9, then stop. Please take Flonase 2 sprays in each nostril once a day and Claritin 10 mg by mouth once a day. You may continue to take Mucinex 600 mg by mouth twice a day as well as Hycodan 5 mL (1 teaspoon) by mouth up to every 4 hours as needed for cough. You may continue taking Tessalon Perles three times a day as well. You may continue to take tramadol 50 mg by mouth up to every 6 hours as needed for pain. You may resume your other home medications. Follow up: Case management will set you up with an outpatient appointment with Dr. Palomares from ENT It is recommended that you pursue allergy testing once your acute illnesses have resolved. We recommend seeing Dr. Veliz, an physician allergist immunologist with [facility]. Current Hospital Diet Patient's current hospital diet: Regular Diet Discharge Diet Recommended Diet: Regular Diet Pending Studies Studies pending at discharge: no Medical Emergencies . Who to Call and When: Medical Emergencies: If at any time you feel your situation is an emergency, please call 911 immediately. . Non-Emergent Contact Non-Emergency issues call your: Primary Care Provider Call Non-Emergent contact if: you have a fever, your pain is worsening, your pain is concerning you, you have any medication questions . Past History Medical & Surgical History: (1) Acute sinusitis (2) Pneumonia (3) Failure of outpatient treatment (4) Immunocompromised state . "Provider Documentation" section prepared by Vivi Rendon. VTE Core Measure Inpt VTE Proph given/why not?: SCD's
--- NOTE | 2016-08-16 14:01 | Discharge Summary ---
Discharge Summary Date of Service Aug 16, 2016. (Vivi Rendon .THALIA) Discharge Summary Admission Date: Aug 14, 2016 at 03:25 Discharge Date: Aug 16, 2016 Discharge Disposition: Home Principal Diagnosis: Pneumonia, acute sinusitis (Vivi Rendon PA-C) Medication Reconciliation New Medications: Prednisone Tab (Prednisone) 10 Mg Tab 10 MG PO UD for 9 Days, #18 TAB Take 3 tabs by mouth daily on days 1-3. Take 2 tabs by mouth daily on days 4-6. Take 1 tab by mouth daily on days 7-9. Fluticasone Propionate (Fluticasone Propionate) 50 Mcg/Act Spr 2 SPRAYS YESSY DAILY for 30 Days, #120 SPRAYS Use 2 sprays in each nostril once a day. Guaifenesin Ext Rel (Mucinex Ext Rel) 600 Mg Tabcr 600 MG PO Q12 for 5 Days, #10 TABS Take 1 tablet by mouth twice a day. Hydrocodone/Homatropine (Hydromet 5-1.5 mg/5Ml) 5 Ml/Cup Syrp 5 ML PO Q4H PRN for Cough for 3 Days, #60 ML Take 5 mL (1 teaspoon) by mouth up to every 4 hours as needed for cough. Loratadine (Claritin) 10 Mg Tab 10 MG PO QAM for 30 Days, #30 TAB Take 1 tablet by mouth daily. Sulfamethoxazole-Trimethoprim (Smz-Tmp Ds) 1 Tab Tab 1 TAB PO Q12 for 28 Days, #56 TAB Take 1 tablet by mouth twice a day for 4 weeks. Tramadol HCl (Tramadol HCl) 50 Mg Tab 50 MG PO Q6H PRN for Pain for 3 Days, #12 TAB Take 1 tablet by mouth up to every 6 hours as needed for pain. Continued Medications: Benzonatate (Tessalon Perles) 100 Mg Cap 100 MG PO TID, #30 CAP Citalopram Hydrobromide (Citalopram Hydrobromide) 10 Mg Tab 10 MG PO DAILY, TAB Folic Acid (Folvite) 1 Mg Tab 1 MG PO DAILY, TAB Lorazepam (Ativan) 0.5 Mg Tab 0.5 MG PO TID PRN for Anxiety, TAB Discontinued Medications: Levofloxacin (Levaquin) 750 Mg Tab 750 MG PO QD@08, #9 TAB Methotrexate (Methotrexate) 2.5 Mg Tab 2.5 MG PO UD, TAB TAKE : 3 TABS FRIDAY/ 2 TABS FRIDAY/ 3 TABS FRIDAY. Discharge Exam Patient complains of congestion, sore throat, and hoarseness. She complains of a 10/10 rib pain that is worse with movement, coughing, and deep breaths. She states that her coughing is improving with Hycodan. She is somewhat short of breath due to inability to take deep breaths without pain. She is still complaining of nausea, but she was able to keep her food down last night. The patient denies fevers, chills, sweats, chest pain, palpitations, claudication, nausea, abdominal pain, dysuria, hematuria, urinary retention, paralysis, weakness, numbness and tingling. Review of Systems: Constitutional: + weakness, No chills, No fever, No sweats Eyes: No diplopia, No eye pain, No worsening of vision ENT: + sore throat, No hearing loss, No trouble swallowing Respiratory: + cough, + shortness of breath, No sputum, No wheezing Cardiovascular: No chest pain, No claudication, No palpitations Abdomen: + nausea, No pain, No vomiting Musculoskeletal: + joint pain (rib pain), No calf pain, No swelling Genitourinary - Female: No dysuria, No hematuria, No urinary retention Neurologic: No numbness/tingling, No paralysis, No weakness Integumentary: No color change, No itch, No rash (Vivi Rendon ., PA-C) Hospital Course 21 y/o female with a history of recurrent sinusitis presents to the ED with ? syncopal episode, cough, hoarseness, sore throat and rib cage pain over the past few days. Pt was seen in ED one day prior to admission and started on PO Levaquin, however symptoms continued to worsen and she had N/V and was not able to keep medications down. Vomiting typically occurs after uncontrollable coughing. Pt also reported an episode of possible syncope one day prior to arrival, stating that she was getting out of bed, felt lightheaded, and then collapsed, but she does not think she had any LOC. CXR shows suspected consolidation within the left midlung suggestive of PNA. Pt just finished 1 month long trial of methotrexate for psoriasis. Possible syncope/lightheadedness--Pt monitored in ED while on tele hold without any arrhythmias and stable vital signs. Pt denies LOC, collapse/LH likely secondary to dehydration since she is not eating or vasovagal response. Orthostatic BPs normal. Pneumonia in setting of immunocompromise--consolidation in left lung, no lateral CXR view, upper vs lower lobe -Transfer to med/surg -D/C Levaquin 750 mg IV qd at discharge -D/C Prednisone 40 mg PO qd at discharge. Taper prednisone 30 mg x 3 days, 20 mg x 3 days, 10 mg x 3 days -Continue NSS + 20 mEq KCL at 125 cc/hr due to poor oral intake -Continue Hycodan syrup 5-10 mL PO q4h prn cough. Continue 5 mL q4h prn cough at discharge -Tessalon Perles 100 mg PO TID prn cough -Mucinex 600 mg PO BID -Lozenges for sore throat -Duonebs QIDR and q2h prn SOB/wheezing -Sputum culture normal rosalie -Blood cultures NGTD x 2 ?Acute sinusitis--pt has h/o recurrent sinusitis, even before methotrexate use -CT sinuses w/o contrast show smart-sinusitis and left deviated septum -Flonase 2 sprays each nostril qd -Claritin 10 mg PO qd -Consider allergy testing when acute illness resolved as outpatient -ENT consulted, appreciate recs: recommend surgical intervention. Recommend 4- 6 weeks abx therapy, 1-2 weeks steroid therapy. -Amoxicillin allergy, given Bactrim DS BID x 4 weeks, prednisone taper as above. Continue Flonase and Claritin as above. Rib pain -Continue Tramadol 50 mg PO q6h prn pain Anxiety -Continue citalopram 10 mg PO qd and Ativan 0.5 mg PO TID prn anxiety DVT prophylaxis -Encourage ambulation -ERROL aparicio and SCDs Code Status -Level I, FULL RESUSCITATION STATUS Total Time Spent: Greater than 30 minutes This includes examination of the patient, discharge planning, medication reconciliation, and communication with other providers. (Vivi Rendon ., PA-C) I agree with PA assessment and plan and have seen and examined the pt myself Pt reports continued congestion Lympadeonpathy noted, hoarseness, nasal drip VSS Labs reviewed and stable COnt with kenan, flonase, bactrim x 4 weeks and steroid taper Will need to f/u with ENT upon discharge (Juan Colunga D.O.) Discharge Instructions Please refer to the electronic Patient Visit Report (Discharge Instructions) for additional information. (Vivi Rendon ., THALIA)
[2016-08-16] MEDS: DiphenhydrAMINE HCL 50 MG/ML VIAL IV PRN (14:58)
[2016-08-16] MEDS: SULFAMETHOXAZOLE/TRIMETHOPRIM DS 800/160MG TAB PO SCH (21:39)
[2016-08-17] MEDS: NSS + 20MEQ KCL 1000ML 1,000 ML IV SCH (03:44)
[2016-08-17] MEDS: ALBUT/IPRATROP 3MG/0.5MG NEB 3 ML VIAL INH SCH ×3 (07:19→11:19)
[2016-08-17 07:20] VITALS: PULSE 80; O2SAT 97
[2016-08-17 08:20] VITALS: BP 118/72; PULSE 70; TEMP 36.8; O2SAT 95
[2016-08-17] MEDS: HYDROCODONE/HOMATROPINE SYRUP 5MG/1.5MG 5ML UDP PO PRN (08:25)
[2016-08-17] MEDS: TRAMADOL HCL 50 MG TAB PO PRN (08:25)
[2016-08-17] MEDS: SULFAMETHOXAZOLE/TRIMETHOPRIM DS 800/160MG TAB PO SCH (08:26)
[2016-08-17] MEDS: FLUTICASONE PROPIONATE NA SPR 16 GM BTL NAE SCH (08:26)
[2016-08-17] MEDS: LORATADINE 10 MG TAB PO SCH (08:27)
[2016-08-17] MEDS: COUGH DROP (SUGAR FREE) LOZ 24 LOZ/1 BOX PO SCH (08:27)
[2016-08-17] MEDS: CITALOPRAM 20 MG TAB PO SCH (08:27)
[2016-08-17] MEDS: GUAIFENESIN 600 MG TABCR PO SCH (08:27)
[2016-08-17 09:41] VITALS: O2SAT 95
[2016-08-17 10:48] VITALS: BP 118/72; PULSE 70; TEMP 36.8; O2SAT 95
[2016-08-17 11:19] VITALS: PULSE 85; O2SAT 98
[2016-08-17 11:53] VITALS: BP 122/70; PULSE 76; TEMP 37; O2SAT 97
== END 2016-08-17 13:33 | disposition home or self-care (01) | DRG 195 ==
LOC: ENRESERVTM → ENRESERVDT → EDBD 00:08 → C.EDB 00:09 → C.EDINP 03:25 → C.2T 13:03 → C.MS2W 16:57
PROVIDERS: ADMIT Hospitalist; ATTEND Hospitalist
DX: J18.9 Pneumonia, unspecified organism (principal); J01.90 Acute sinusitis, unspecified; J02.9 Acute pharyngitis, unspecified; D89.9 Disorder involving the immune mechanism, unspecified; R07.81 Pleurodynia; F41.9 Anxiety disorder, unspecified; F17.200 Nicotine dependence, unspecified, uncomplicated; R55 Syncope and collapse; E86.0 Dehydration; J40 Bronchitis, not specified as acute or chronic; T45.1X5A Adverse effect of antineoplastic and immunosuppressive drugs, initial encounter

== ENCOUNTER 2016-10-18 17:35 | Emergency (ER) | payer OTHER ==
[~2016-10-18] VITALS: Ht 165.1 cm; Wt 69.6 kg
[~2016-10-18 17:35] MED LIST changes: -BENZ100C18 PO; +CLR10 PO; +FLNIN NAE; +GFNSR600 PO; +HYCUDL5 PO; -LEVO1TAB35 PO; -METH2.5T PO; +SULF-183 PO; +ULT50X PO
[2016-10-18 17:42] VITALS: TEMP 36.7; Ht 165.1 cm; Wt 69.6 kg
[2016-10-18 18:27] LABS: BASO % 0.5 %; BASO ABS # 0.03 K/uL (0-0.2); COMPLETE YES; EOS % 1.5 %; HEMATOCRIT 43.7 % (37-47); IG% 0.2 %; LYMPH % 29.9 %; LYMPH ABS # 1.99 K/uL (1.2-3.4); MEAN CELL VOLUME 87.6 fL (80-100); MEAN CORPUSCULAR HEMOGLOBIN 29.5 pg (25-34); MEAN CORPUSCULAR HGB CONC 33.6 g/dl (32-36); MEAN PLATELET VOLUME 10.6 fL (7.4-10.4); MONO % 9.8 %; NEUT % 58.1 %; PLATELET COUNT 281 K/uL (130-400); RED BLOOD COUNT 4.99 M/uL (4.2-5.4); WHITE BLOOD COUNT 6.65 K/uL (4.8-10.8)
[2016-10-18 18:33] LABS: URINE APPEARANCE CLEAR (CLEAR); URINE BILIRUBIN NEG (NEG); URINE COLOR YELLOW; URINE EPITHELIAL CELL AUTO >30 /lpf (0-5); URINE NITRITE NEG (NEG); URINE SPECIFIC GRAVITY 1.021 (1.000-1.030); UROBILINOGEN NEG (NEG)
[2016-10-18 18:37] LABS: MANUAL MICROSCOPIC REQUIRED? NO; REVIEW REQ? NO
[2016-10-18 18:53] LABS: BUN/CREATININE RATIO 11.4 (10-20); CALCIUM 8.9 mg/dl (8.5-10.1); CREATININE 0.96 mg/dl (0.60-1.20); POTASSIUM 4.2 mmol/L (3.5-5.1)
[2016-10-18 18:58] LABS: BENZODIAZEPINE, URINE NEG (NEG); COCAINE,URINE NEG (NEG); PHENCYCLIDINE, URINE NEG (NEG)
[2016-10-18 19:03] LABS: THYROID STIMULATING HORMONE 0.557 uIu/ml (0.300-4.500)
[2016-10-18] MEDS ORDERED: ESCI10TA17 PO (19:09)
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
[2016-10-18] MEDS ORDERED: LORAZEPAM 0.5 MG TAB SL STA (20:14)
[2016-10-18 22:40] VITALS: BP 128/72; PULSE 74; O2SAT 99
[2017-04-16] MEDS ORDERED: USTE45IN2 INJ (00:29)
== END 2016-10-18 22:35 | disposition short-term general hospital (02) ==
LOC: C.EDB 17:36 → C.EDA 22:35
DX: R45.851 Suicidal ideations (principal); F39 Unspecified mood [affective] disorder; Z86.19 Personal history of other infectious and parasitic diseases; Z79.899 Other long term (current) drug therapy; Z88.1 Allergy status to other antibiotic agents; Z88.2 Allergy status to sulfonamides

== ENCOUNTER 2017-04-16 23:49 | Emergency (ER) | payer OTHER ==
[~2017-04-16] VITALS: Ht 165.1 cm; Wt 73.4 kg
[~2017-04-16 23:49] MED LIST changes: -CITA10TA4 PO; -CLR10 PO; +ESCI10TA17 PO; -FLNIN NAE; -FOLI1TAB7 PO; -GFNSR600 PO; -HYCUDL5 PO; -SULF-183 PO; -ULT50X PO; +USTE45IN2 INJ
[2017-04-16 23:53] VITALS: Ht 165.1 cm; Wt 73.4 kg
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
[2017-04-17] MEDS ORDERED: GABA1CAP5 PO (00:29)
[2017-04-17] MEDS ORDERED: DESV50TA PO (00:29)
[2017-04-17] MEDS ORDERED: RISP1TAB68 PO (00:30)
[2017-04-17 00:31] LABS: BASO % 0.6 %; BASO ABS # 0.03 K/uL (0-0.2); COMPLETE YES; HEMATOCRIT 41.5 % (37-47); IG% 0.2 %; LYMPH % 42.2 %; LYMPH ABS # 1.98 K/uL (1.2-3.4); MEAN CELL VOLUME 84.9 fL (80-100); MEAN CORPUSCULAR HEMOGLOBIN 29.2 pg (25-34); MEAN CORPUSCULAR HGB CONC 34.5 g/dl (32-36); MEAN PLATELET VOLUME 10.3 fL (7.4-10.4); MONO % 11.5 %; NEUT % 42.5 %; PLATELET COUNT 244 K/uL (130-400); RED BLOOD COUNT 4.89 M/uL (4.2-5.4); WHITE BLOOD COUNT 4.69 K/uL (4.8-10.8)
[2017-04-17 00:33] LABS: URINE APPEARANCE CLEAR (CLEAR); URINE BILIRUBIN NEG (NEG); URINE COLOR YELLOW; URINE EPITHELIAL CELL AUTO >30 /lpf (0-5); URINE NITRITE NEG (NEG); URINE SPECIFIC GRAVITY 1.024 (1.000-1.030); UROBILINOGEN NEG (NEG); ZZUR CULT IF INDIC CLEAN CATCH NO
[2017-04-17 00:34] LABS: MANUAL MICROSCOPIC REQUIRED? NO; REVIEW REQ? NO
[2017-04-17 00:50] LABS: BUN/CREATININE RATIO 14.5 (10-20); CALCIUM 8.2 mg/dl (8.5-10.1); CREATININE 1.08 mg/dl (0.60-1.20); POTASSIUM 4.2 mmol/L (3.5-5.1)
[2017-04-17 01:01] LABS: ALB/GLOB RATIO 1.1 (0.9-2); THYROID STIMULATING HORMONE 1.82 uIu/ml (0.300-4.500)
[2017-04-17 01:08] LABS: ACETAMINOPHEN < 2 ug/ml (10-30)
[2017-04-17 01:45] LABS: COCAINE,URINE NEG (NEG); PHENCYCLIDINE, URINE NEG (NEG)
[2017-04-17 01:54] LABS: BENZODIAZEPINE, URINE NEG (NEG)
[2017-04-17] MEDS ORDERED: LORAZEPAM 0.5 MG TAB PO PRN (07:30)
[2017-04-17 11:31] VITALS: BP 112/73; PULSE 75; O2SAT 96
== END 2017-04-17 11:31 ==
LOC: C.EDB 23:51 → C.EDA 04-17 11:31
DX: Z00.8 Encounter for other general examination (principal); R45.851 Suicidal ideations; F32.9 Major depressive disorder, single episode, unspecified; F50.2 Bulimia nervosa